=== PATIENT | female | born 1965 | race African-American/Black ===

== ENCOUNTER 2019-03-17 11:35 | Emergency (ER) | payer SELFPAY ==
[~2019-03-17] VITALS: Ht 160 cm; Wt 87.0 kg
[2019-03-17] MEDS ORDERED: LACTULOSE 20G/30ML UDC PO ONE (12:15)
[2019-03-17] MEDS ORDERED: MAGNESIUM CITRATE 300ML SOLUTION PO ONE (12:15)
[2019-03-17] MEDS ORDERED: NA PHOS,M-B/NA PHOS,DI-BA ENEMA 118ML PR ONE (12:15)
[2019-03-17 13:01] LABS: BASOPHILS % 0.6 % (0.0-2.0); EOSINOPHILS % 0.9 % (0.0-5.0); HEMATOCRIT. 38.7 % (36.0-48.0); HEMOGLOBIN. 12.9 g/dL (12.0-16.0); LYMPHOCYTES % 48.8 % (20.0-50.0); MEAN CORPUSCULAR HEMOGLOBIN 30.8 pg (28.0-32.0); MEAN CORPUSCULAR VOLUME 92.4 fL (81.0-99.0); MEAN PLATELET VOLUME 8.6 fl (7.4-10.4); MONOCYTES % 6.9 % (2.0-8.0); NEUTROPHILS % 42.8 % (40.0-76.0); PLATELET 244 x1000/uL (130-400); RED BLOOD CELL COUNT 4.18 mill/uL (4.2-5.4); RED CELL DISTRIBUTION WIDTH 14.7 % (11.6-14.6)
[2019-03-17 13:14] LABS: CHLORIDE 104 mEq/L (98-107)
[2019-03-17 14:29] VITALS: BP 120/80
== END 2019-03-17 14:30 | disposition home or self-care (01) ==
LOC: ER 11:35
DX: K59.00 Constipation, unspecified (principal); M54.5 Low back pain; E11.9 Type 2 diabetes mellitus without complications; I10 Essential (primary) hypertension; F12.10 Cannabis abuse, uncomplicated; Z90.49 Acquired absence of other specified parts of digestive tract
CPT/HCPCS: 36415; 99283

== ENCOUNTER 2020-04-13 10:49 | Emergency (ER) | payer SELFPAY ==
[~2020-04-13] VITALS: Ht 160 cm; Wt 89.0 kg
[2020-04-13 10:54] VITALS: BP 131/83
== END 2020-04-13 11:33 | disposition home or self-care (01) ==
LOC: ER 10:49
DX: M54.12 Radiculopathy, cervical region (principal); E11.9 Type 2 diabetes mellitus without complications; I10 Essential (primary) hypertension; F12.10 Cannabis abuse, uncomplicated; Z98.84 Bariatric surgery status; Z90.49 Acquired absence of other specified parts of digestive tract; Z90.710 Acquired absence of both cervix and uterus
CPT/HCPCS: 99281

== ENCOUNTER 2020-12-23 16:13 | Emergency (ER) | payer BC ==
[~2020-12-23] VITALS: Ht 160 cm; Wt 86.0 kg
[2020-12-23 16:22] VITALS: BP 150/87
[2020-12-23] MEDS ORDERED: PSEU-207 MT (16:44)
== END 2020-12-23 17:03 | disposition home or self-care (01) ==
LOC: ER 16:13
DX: H92.03 Otalgia, bilateral (principal); R09.89 Other specified symptoms and signs involving the circulatory and respiratory systems; R09.81 Nasal congestion; I10 Essential (primary) hypertension; E11.9 Type 2 diabetes mellitus without complications
CPT/HCPCS: 99282